=== PATIENT | male | born 1995 ===

== ENCOUNTER 2023-03-24 20:32 | Outpatient (REF) | payer SELFPAY ==
[2023-03-24 19:48] LABS: HCT 45.2 % (40.0-50.0); HGB 15.7 g/dL (13.5-17.5); MCHC 34.7 % (32.0-36.0); MCV 86 fL (80-95); MPV 10.8 fL (8.0-11.0); Platelet Count 224 10^3/uL (130-400); RBC 5.23 10^6/uL (4.36-5.78); RDW 11.3 % (11.8-14.1); RDW-SD 35.4 fL; WBC 7.07 10^3/uL (4.4-10.8)
[2023-03-24 20:41] LABS: ALT 24 U/L (16-63); AST 15 U/L (15-37); Albumin 4.3 g/dL (3.4-5.0); Alkaline Phosphatase 72 U/L (46-116); Anion Gap 8.8 mmol/L (3-11); BUN 16 mg/dL (7-18); Bilirubin, Total 0.4 mg/dL (0.2-1.0); CO2 26.2 mmol/L (21.0-32.0); CREATININE 1.1 mg/dL (0.70-1.30); Calcium 9.1 mg/dL (8.5-10.1); Chloride 106 mmol/L (98-107); Estimated GFR 93.19 (mL/min/1.73m2); Glucose 87 mg/dL (74-106); Sodium 141 mmol/L (136-145); Total Protein 6.8 g/dL (6.4-8.2)
[2023-03-26 13:15] LABS: dsDNA Ab, IgG <12.3 IU/mL (<30.0)
[2023-03-26 13:30] LABS: ANA Interpretation Negative (Negative)
== END 2023-03-24 20:33 | disposition home or self-care (01) ==
LOC: NCHCN 20:32
PROVIDERS: PCP Physician Assistant; Visit Provider Physician Assistant
DX: R21 Rash and other nonspecific skin eruption (principal); Z01.84 Encounter for antibody response examination
CPT/HCPCS: 80053; 85027; 86038; 86225

== ENCOUNTER 2023-08-19 12:41 | Outpatient (REF) | payer BC, SELFPAY ==
[2023-08-19 15:38] LABS: Abs Immature Grans 0.01 10^3/uL (0.0-0.06); Absolute Basophil Count 0.06 10^3/uL (0.0-0.2); Absolute Lymphocyte Count 1.73 10^3/uL (1.2-3.4); Absolute Monocyte Count 0.44 10^3/uL (0.1-0.8); Absolute Neutrophil Count 2.63 10^3/uL (1.2-6.7); Basophils % 1.2; HCT 46.9 % (40.0-50.0); HGB 16.7 g/dL (13.5-17.5); Immature Grans % 0.2; Lymphocytes % 34.8; MCH 29.8 pg (27.0-33.0); MCHC 35.6 % (32.0-36.0); MCV 84 fL (80-95); MPV 10.1 fL (8.0-11.0); Monocytes % 8.9; Neutrophils % 52.9; Platelet Count 284 10^3/uL (130-400); RBC 5.61 10^6/uL (4.36-5.78); RDW 10.8 % (11.8-14.1); RDW-SD 33.1 fL; WBC 4.97 10^3/uL (4.4-10.8)
[2023-08-19 15:51] LABS: Bilirubin Negative (Negative); Blood Negative (Negative); Clarity Clear (Clear); Glucose Negative (Negative); Ketones Trace mg/dL (Negative); Leukocyte Esterase Negative (Negative); Nitrite Negative (Negative); Urobilinogen 0.2 mg/dL (Up to 0.2); pH 7.5 (5-8)
[2023-08-19 16:48] LABS: ALT 25 U/L (16-63); AST 11 U/L (15-37); Albumin 4.6 g/dL (3.4-5.0); Alkaline Phosphatase 88 U/L (46-116); Anion Gap 9.6 mmol/L (3-11); BUN 15 mg/dL (7-18); Bilirubin, Total 1.2 mg/dL (0.2-1.0); CO2 27.4 mmol/L (21.0-32.0); CREATININE 1.1 mg/dL (0.70-1.30); Calcium 9.6 mg/dL (8.5-10.1); Chloride 103 mmol/L (98-107); Estimated GFR 93.19 (mL/min/1.73m2); Glucose 89 mg/dL (74-106); Potassium 4.6 mmol/L (3.5-5.1); Sodium 140 mmol/L (136-145); Total Protein 7.6 g/dL (6.4-8.2)
[2023-08-20 09:45] LABS: C3 Complement 96 mg/dL (81-157); C4 Complement 24 mg/dL (13-39)
[2023-08-20 12:02] LABS: ANA Interpretation Negative (Negative); RNP Ab, IgG <6.0 CU (<20.0); Ro60 Ab, IgG <7.0 CU (<20.0); SS-A/Ro, IgG <2.3 CU (<20.0); SS-B (La) Ab, IgG <3.3 CU (<20.0); Sm (Smith) Ab, IgG <8.0 CU (<20.0); dsDNA Ab, IgG <22.0 IU/mL (<27.0)
== END 2023-08-19 12:42 | disposition home or self-care (01) ==
LOC: NCHCN 12:41
PROVIDERS: PCP Physician Assistant; Visit Provider Physician Assistant
DX: L93.2 Other local lupus erythematosus (principal)
CPT/HCPCS: 80053; 81003; 85025; 86038; 86160; 86225; 86235